=== PATIENT | female | born 1970 | race Two or more races ===

== ENCOUNTER 2021-01-04 22:37 | Emergency (ER) | payer OTHER ==
[~2021-01-04] VITALS: Ht 167.6 cm; Wt 74.8 kg
[2021-01-05] MEDS ORDERED: NAPROXEN375 MG PO (03:43)
[2021-01-05] MEDS ORDERED: NORFLEX100MG PO (03:43)
== END 2021-01-05 | disposition home or self-care (01) ==
LOC: ER 22:37
DX: M62.838 Other muscle spasm (principal); A49.3 Mycoplasma infection, unspecified site; Z03.818 Encounter for observation for suspected exposure to other biological agents ruled out